=== PATIENT | female | born 1935 | race Caucasian/White ===

== ENCOUNTER 2016-12-12 13:39 | Inpatient (IN) | payer OTHER ==
[~2016-12-12] VITALS: Ht 170.2 cm; Wt 112.5 kg
[~2016-12-12 13:39] MED LIST: ADVAIR 100/501 DISK IH; BUMETANIDE1 MG PO; DIGITEK125 MC2 PO; FUROSEMIDE40 MG PO; GABAPENTIN100 MG PO; K-DUR20 MEQ PO; KETOCONAZOLE60 GM TP; LOPRESSOR25 MG PO; OLIVE PO; PREDNISONE20 MG PO; SPIRIVA1 INHALATI IH; SPIRONOLACTONE50 MG PO; TOPROL XL100 MG PO; VENTOLIN HFA18 GM IH; [UNRECOGNIZED DRUG - OTHER] PO
[2016-12-12 14:46] LABS: EOSINOPHIL (%) 0 % (0-5); HEMATOCRIT 35.2 % (36.0-46.0); IMMATURE GRANULOCYTE (%) 0.4 % (0.0-0.7); INSTRUMENT ABS NEUTROPHIL CT 6.3 K/uL; LYMPHOCYTE COUNT 0.9 K/uL (1.0-2.8); MCH 30.4 PG (29.0-34.0); MCV 92.4 FL (83-99); MEAN PLAT.VOLUME 9.8 uM^3 (9.5-12.4); MONOCYTE (%) 11.9 % (3-12); NEUTROPHIL (%) 76.8 % (45-76); NEUTROPHIL COUNT 6.3 K/uL (1.8-6.4); PLATELET COUNT 189 K/uL (156-360); RBC DIS.WIDTH-SD 56.9 % (39-53); RED BLOOD COUNT 3.81 M/uL (3.80-5.20); WHITE BLOOD COUNT 8.2 K/uL (4.1-10.2)
[2016-12-12 14:51] LABS: PROTHROMBIN TIME 22.2 SEC (10.2-12.9)
[2016-12-12 14:54] LABS: PTT 28.6 SEC (25-37)
[2016-12-12 14:55] LABS: CHLORIDE 98 mEq/L (99-109); SODIUM 136 mEq/L (136-147)
[2016-12-12 14:57] LABS: GLUCOSE 98 mg/dL (70-99)
[2016-12-12 14:58] LABS: ANION GAP 22 MEQ/L (2-14)
[2016-12-12 14:59] LABS: TOTAL BILIRUBIN 5.7 mg/dL (0.0-1.0)
[2016-12-12 15:00] LABS: ALKALINE PHOSPHATASE 104 IU/L (3-129)
[2016-12-12 15:01] LABS: GFR ESTIMATE (CALCULATED) 15 mL/min/; POTASSIUM 6.3 mEq/L (3.7-5.4)
[2016-12-12 15:02] LABS: UREA NITROGEN (BUN) 93 mg/dL (9-23)
[2016-12-12 15:04] LABS: CREATINE KINASE 303 IU/L (1-294); TOTAL CK 303 IU/L (1-294)
[2016-12-12 15:09] LABS: CK-MB 18.9 ng/mL (0.0-4.9)
[2016-12-12 15:10] LABS: TROP-I INTERPRETATION NEGATIVE; TROPONIN-I 0.06 ng/mL (0.0-0.30)
[2016-12-12 16:20] LABS: POINT-OF-CARE METER ID UU13113747
[2016-12-12] MEDS ORDERED: METOPROLOL SUC100 MG PO (16:32)
[2016-12-12] MEDS ORDERED: GABAPENTIN100 MG PO (16:33)
[2016-12-12] MEDS ORDERED: BUMEX1 MG PO (16:34)
[2016-12-12] MEDS ORDERED: ALDACTONE25 MG PO (16:34)
[2016-12-12] MEDS ORDERED: KLOR-CON SPRIN10 MEQ PO (16:34)
[2016-12-12] MEDS ORDERED: LO-DOSE ASPIRIN81 M1 PO (16:35)
[2016-12-12 16:55] LABS: POINT-OF-CARE METER ID UU13113747
[2016-12-12 20:03] LABS: ADD MIUA? YES; BILIRUBIN NEGATIVE; BLOOD MODERATE; COLOR AMBER ((YELLOW)); GLUCOSE (STRIP) NEGATIVE; KETONES NEGATIVE; LEUKOCYTES NEGATIVE; NITRITE NEGATIVE; PROTEIN (STRIP) 100; SPECIFIC GRAVITY 1.017 (1.000-1.030)
[2016-12-12 20:12] LABS: BACTERIA 2+ /HPF; EPITHELIAL CELLS RARE /HPF; HYALINE CASTS 30-40 /LPF; MUCUS TRACE /LPF; RED BLOOD CELLS 15-20 /HPF (0-5)
[2016-12-12 20:20] VITALS: BP 108/69
[2016-12-12 21:10] LABS: POINT-OF-CARE METER ID UU13113698
[2016-12-12 22:08] LABS: CHLORIDE 102 mEq/L (99-109); POTASSIUM 5.7 mEq/L (3.7-5.4); SODIUM 136 mEq/L (136-147)
[2016-12-12 22:09] LABS: GLUCOSE 98 mg/dL (70-99)
[2016-12-12 22:11] LABS: ANION GAP 18 MEQ/L (2-14)
[2016-12-12 22:13] LABS: GFR ESTIMATE (CALCULATED) 16 mL/min/
[2016-12-12 22:14] LABS: UREA NITROGEN (BUN) 91 mg/dL (9-23)
[2016-12-12 22:19] LABS: TROP-I INTERPRETATION NEGATIVE; TROPONIN-I 0.05 ng/mL (0.0-0.30)
[2016-12-13] VITALS (7 sets, daily range): BP systolic 104–118; BP diastolic 49–72
[2016-12-13 06:13] LABS: TROP-I INTERPRETATION NEGATIVE
[2016-12-13 08:03] LABS: POINT-OF-CARE METER ID UU14174216
[2016-12-13 08:50] LABS: HEMATOCRIT 32.7 % (36.0-46.0); MCH 30.5 PG (29.0-34.0); MCHC 32.4 G/DL (30.0-36.0); MEAN PLAT.VOLUME 10.3 uM^3 (9.5-12.4); NRBC (%) 0.3 /100 WBC (0-0); PLATELET COUNT 180 K/uL (156-360); RBC DIS.WIDTH-CV 17.1 % (11.8-14.6); RBC DIS.WIDTH-SD 57.7 % (39-53); RED BLOOD COUNT 3.48 M/uL (3.80-5.20); WHITE BLOOD COUNT 7.4 K/uL (4.1-10.2)
[2016-12-13 09:23] LABS: ALKALINE PHOSPHATASE 86 IU/L (3-129); ANION GAP 20 MEQ/L (2-14); CHLORIDE 101 MEQ/L (99-109); GFR ESTIMATE (CALCULATED) 15 mL/min/; GLUCOSE 95 mg/dL (70-99); POTASSIUM 5.3 MEQ/L (3.7-5.4); SAMPLE HEMOLYSIS CHECK 0; SAMPLE ICTERIC CHECK 1; SAMPLE LIPEMIA CHECK 0; SODIUM 137 MEQ/L (136-147); TOTAL BILIRUBIN 4.3 MG/DL (0.0-1.0); UREA NITROGEN (BUN) 96 mg/dL (9-23)
[2016-12-13 11:24] LABS: POINT-OF-CARE METER ID UU14174216
[2016-12-13 14:38] LABS: TROP-I INTERPRETATION POSITIVE; TROPONIN-I 0.89 ng/mL (0.0-0.30)
[2016-12-13 18:43] LABS: ANION GAP 17 MEQ/L (2-14); CHLORIDE 102 MEQ/L (99-109); CREATINE KINASE 109 IU/L (1-294); GFR ESTIMATE (CALCULATED) 15 mL/min/; GLUCOSE 129 mg/dL (70-99); POTASSIUM 4.9 MEQ/L (3.7-5.4); SAMPLE HEMOLYSIS CHECK 0; SAMPLE ICTERIC CHECK 0; SAMPLE LIPEMIA CHECK 0; SODIUM 136 MEQ/L (136-147); TROP-I INTERPRETATION POSITIVE; UREA NITROGEN (BUN) 94 mg/dL (9-23)
[2016-12-14 04:04] VITALS: BP 110/68
[2016-12-14 05:58] LABS: EOSINOPHIL (%) 0.8 % (0-5); EOSINOPHIL COUNT 0.1 K/uL (0-0.3); HEMATOCRIT 30.9 % (36.0-46.0); IMMATURE GRANULOCYTE (%) 0.8 % (0.0-0.7); IMMATURE GRANULOCYTE COUNT 0.1 K/uL; MCH 32.1 PG (29.0-34.0); MCHC 33.7 G/DL (30.0-36.0); MCV 95.4 FL (83-99); MEAN PLAT.VOLUME 9.8 uM^3 (9.5-12.4); MONOCYTE (%) 19.2 % (3-12); MONOCYTE COUNT 1.2 K/uL (0-0.8); NEUTROPHIL (%) 62.7 % (45-76); NRBC (%) 0.3 /100 WBC (0-0); PLATELET COUNT 165 K/uL (156-360); RBC DIS.WIDTH-CV 17.3 % (11.8-14.6); RBC DIS.WIDTH-SD 59.4 % (39-53); RED BLOOD COUNT 3.24 M/uL (3.80-5.20); WHITE BLOOD COUNT 6.3 K/uL (4.1-10.2)
[2016-12-14 06:44] LABS: ANION GAP 10 MEQ/L (2-14); CHLORIDE 100 MEQ/L (99-109); GFR ESTIMATE (CALCULATED) 14 mL/min/; GLUCOSE 132 mg/dL (70-99); POTASSIUM 4.5 MEQ/L (3.7-5.4); SAMPLE HEMOLYSIS CHECK 0; SAMPLE ICTERIC CHECK 0; SAMPLE LIPEMIA CHECK 0; SODIUM 133 MEQ/L (136-147); UREA NITROGEN (BUN) 94 mg/dL (9-23)
[2016-12-14 07:55] VITALS: BP 125/58
[2016-12-14 11:50] VITALS: BP 108/58
[2016-12-14 15:45] VITALS: BP 109/50
[2016-12-14 19:40] VITALS: BP 122/56
[2016-12-15] VITALS (7 sets, daily range): BP systolic 97–162; BP diastolic 52–74
[2016-12-16 05:10] LABS: EOSINOPHIL (%) 2.6 % (0-5); EOSINOPHIL COUNT 0.2 K/uL (0-0.3); HEMATOCRIT 31.5 % (36.0-46.0); IMMATURE GRANULOCYTE (%) 1.2 % (0.0-0.7); IMMATURE GRANULOCYTE COUNT 0.1 K/uL; INSTRUMENT ABS NEUTROPHIL CT 3.6 K/uL; LYMPHOCYTE COUNT 0.8 K/uL (1.0-2.8); MCH 32.3 PG (29.0-34.0); MCHC 33.7 G/DL (30.0-36.0); MEAN PLAT.VOLUME 9.9 uM^3 (9.5-12.4); MONOCYTE (%) 18.9 % (3-12); MONOCYTE COUNT 1.1 K/uL (0-0.8); NEUTROPHIL (%) 62.6 % (45-76); NEUTROPHIL COUNT 3.6 K/uL (1.8-6.4); PLATELET COUNT 151 K/uL (156-360); RBC DIS.WIDTH-CV 17.8 % (11.8-14.6); RBC DIS.WIDTH-SD 59.4 % (39-53); RED BLOOD COUNT 3.28 M/uL (3.80-5.20); WHITE BLOOD COUNT 5.8 K/uL (4.1-10.2)
[2016-12-16 05:32] VITALS: BP 107/57
[2016-12-16 06:00] LABS: ANION GAP 10 MEQ/L (2-14); CHLORIDE 107 MEQ/L (99-109); GFR ESTIMATE (CALCULATED) 29 mL/min/; GLUCOSE 119 mg/dL (70-99); POTASSIUM 4.1 MEQ/L (3.7-5.4); SAMPLE HEMOLYSIS CHECK 0; SAMPLE ICTERIC CHECK 0; SAMPLE LIPEMIA CHECK 0; SODIUM 139 MEQ/L (136-147); UREA NITROGEN (BUN) 80 mg/dL (9-23)
[2016-12-16 07:45] VITALS: BP 122/71
[2016-12-16 11:45] VITALS: BP 112/53
[2016-12-16 12:46] LABS: INTER. NORMALIZED RATIO 1.4
[2016-12-16 13:30] LABS: ALKALINE PHOSPHATASE 82 IU/L (3-129); DIRECT BILIRUBIN 0.6 mg/dL (0.0-0.3)
[2016-12-16 13:39] LABS: TOTAL BILIRUBIN 1.4 MG/DL (0.0-1.0)
[2016-12-16 16:18] VITALS: BP 122/57
[2016-12-16 19:50] VITALS: BP 130/60
[2016-12-16 23:05] VITALS: BP 121/57
[2016-12-17 04:15] VITALS: BP 118/58
[2016-12-17 04:16] LABS: EOSINOPHIL (%) 3.2 % (0-5); EOSINOPHIL COUNT 0.2 K/uL (0-0.3); HEMATOCRIT 33.2 % (36.0-46.0); IMMATURE GRANULOCYTE (%) 1.7 % (0.0-0.7); IMMATURE GRANULOCYTE COUNT 0.1 K/uL; INSTRUMENT ABS NEUTROPHIL CT 4.1 K/uL; LYMPHOCYTE COUNT 0.9 K/uL (1.0-2.8); MCH 30.7 PG (29.0-34.0); MCHC 32.2 G/DL (30.0-36.0); MCV 95.4 FL (83-99); MEAN PLAT.VOLUME 9.3 uM^3 (9.5-12.4); MONOCYTE (%) 17.9 % (3-12); MONOCYTE COUNT 1.2 K/uL (0-0.8); NEUTROPHIL (%) 63.2 % (45-76); NEUTROPHIL COUNT 4.1 K/uL (1.8-6.4); PLATELET COUNT 154 K/uL (156-360); RBC DIS.WIDTH-CV 17.7 % (11.8-14.6); RBC DIS.WIDTH-SD 59.3 % (39-53); RED BLOOD COUNT 3.48 M/uL (3.80-5.20); WHITE BLOOD COUNT 6.5 K/uL (4.1-10.2)
[2016-12-17 04:24] LABS: CHLORIDE 108 mEq/L (99-109); SODIUM 137 mEq/L (136-147)
[2016-12-17 04:26] LABS: GLUCOSE 114 mg/dL (70-99)
[2016-12-17 04:27] LABS: ANION GAP 10 MEQ/L (2-14)
[2016-12-17 04:28] LABS: TOTAL BILIRUBIN 1.3 mg/dL (0.0-1.0)
[2016-12-17 04:29] LABS: ALKALINE PHOSPHATASE 95 IU/L (3-129)
[2016-12-17 04:30] LABS: GFR ESTIMATE (CALCULATED) 33 mL/min/
[2016-12-17 04:31] LABS: UREA NITROGEN (BUN) 67 mg/dL (9-23)
[2016-12-17 07:38] VITALS: BP 144/63
[2016-12-17 11:00] VITALS: BP 114/58
[2016-12-17 15:32] VITALS: BP 119/60
[2016-12-17] MEDS ORDERED: ZINC OXIDE56.7 GM TP (15:40)
[2016-12-17] MEDS ORDERED: Zeasorb Antifungal T TP (15:40)
[2016-12-17] MEDS ORDERED: FAMOTIDINE20 MG PO (15:40)
== END 2016-12-17 19:58 | DRG 682 ==
LOC: EME 13:39 → 4EAST 16:00 → EDOF 16:00 → ENRESERV 17:31 → 4EAST 20:10 → ENPENDDIS 12-17 → 4EAST 12-17 19:58
PROVIDERS: Emergency Medicine; Internal Medicine; Internal Medicine Nephrology
DX: N17.0 Acute kidney failure with tubular necrosis (principal); G93.40 Encephalopathy, unspecified; L89.303 Pressure ulcer of unspecified buttock, stage 3; L03.116 Cellulitis of left lower limb; L03.115 Cellulitis of right lower limb; I13.0 Hypertensive heart and chronic kidney disease with heart failure and stage 1 through stage 4 chronic kidney disease, or unspecified chronic kidney disease; E87.2 Acidosis; E87.5 Hyperkalemia; I27.2 Other secondary pulmonary hypertension; I50.9 Heart failure, unspecified; I27.81 Cor pulmonale (chronic); I87.2 Venous insufficiency (chronic) (peripheral); T68.XXXA Hypothermia, initial encounter; J44.9 Chronic obstructive pulmonary disease, unspecified; I73.9 Peripheral vascular disease, unspecified; I48.0 Paroxysmal atrial fibrillation; D64.9 Anemia, unspecified; E11.22 Type 2 diabetes mellitus with diabetic chronic kidney disease; L89.309 Pressure ulcer of unspecified buttock, unspecified stage; L97.521 Non-pressure chronic ulcer of other part of left foot limited to breakdown of skin; R09.02 Hypoxemia; L97.811 Non-pressure chronic ulcer of other part of right lower leg limited to breakdown of skin; I48.2 Chronic atrial fibrillation; K80.20 Calculus of gallbladder without cholecystitis without obstruction; E78.5 Hyperlipidemia, unspecified; L97.511 Non-pressure chronic ulcer of other part of right foot limited to breakdown of skin; E87.6 Hypokalemia; N18.3 Chronic kidney disease, stage 3 (moderate); I08.1 Rheumatic disorders of both mitral and tricuspid valves; K74.60 Unspecified cirrhosis of liver; W19.XXXA Unspecified fall, initial encounter; Y92.009 Unspecified place in unspecified non-institutional (private) residence as the place of occurrence of the external cause; D63.1 Anemia in chronic kidney disease; R21 Rash and other nonspecific skin eruption; G62.9 Polyneuropathy, unspecified; E86.0 Dehydration; Z68.36 Body mass index [BMI] 36.0-36.9, adult; Z95.0 Presence of cardiac pacemaker; Z87.891 Personal history of nicotine dependence; Z82.49 Family history of ischemic heart disease and other diseases of the circulatory system
CPT/HCPCS: 70450; 71010; 76770; 80048; 80048 91; 80053; 80069; 80076; 81003; 82140; 82550; 82550 91; 82553; 82948; 83605; 84484; 85025; 85027; 85610; 85730; 87040; 93005; 94640; 94799; 97530 GO; 97530 GP; 99202; 99281; 99285; A6260; J0696; J1644; J7030; J7050

== ENCOUNTER 2017-03-20 00:04 | Inpatient (IN) | payer OTHER ==
[2017-03-20] VITALS (18 sets, daily range): BP systolic 41–125; BP diastolic 21–81
[~2017-03-20] VITALS: Ht 165.1 cm; Wt 106.3 kg
[~2017-03-20 00:04] MED LIST changes: +ALDACTONE25 MG PO; +BUMEX1 MG PO; +FAMOTIDINE20 MG PO; +KLOR-CON SPRIN10 MEQ PO; +LO-DOSE ASPIRIN81 M1 PO; +METOPROLOL SUC100 MG PO; +ZINC OXIDE56.7 GM TP; +Zeasorb Antifungal T TP
[2017-03-20 00:35] LABS: EOSINOPHIL (%) 0.2 % (0-5); HEMATOCRIT 32.4 % (36.0-46.0); INSTRUMENT ABS NEUTROPHIL CT 3.1 K/uL; LYMPHOCYTE COUNT 0.4 K/uL (1.0-2.8); MCH 30.5 PG (29.0-34.0); MCHC 32.4 G/DL (30.0-36.0); MCV 94.2 FL (83-99); MEAN PLAT.VOLUME 9.6 uM^3 (9.5-12.4); MONOCYTE (%) 13.8 % (3-12); MONOCYTE COUNT 0.6 K/uL (0-0.8); NEUTROPHIL (%) 74.4 % (45-76); NEUTROPHIL COUNT 3.1 K/uL (1.8-6.4); RBC DIS.WIDTH-CV 17.4 % (11.8-14.6); RBC DIS.WIDTH-SD 58.5 % (39-53); RED BLOOD COUNT 3.44 M/uL (3.80-5.20); WHITE BLOOD COUNT 4.1 K/uL (4.1-10.2)
[2017-03-20 00:37] LABS: INTER. NORMALIZED RATIO 1.3; PROTHROMBIN TIME 14.5 SEC (10.2-12.9)
[2017-03-20 00:40] LABS: PTT 30.6 SEC (25-37)
[2017-03-20 00:41] LABS: PLATELET COUNT 229 K/uL (156-360)
[2017-03-20 00:46] LABS: CHLORIDE 94 mEq/L (99-109); POTASSIUM 5.1 mEq/L (3.7-5.4); SODIUM 137 mEq/L (136-147)
[2017-03-20 00:49] LABS: GLUCOSE 108 mg/dL (70-99)
[2017-03-20 00:50] LABS: ANION GAP 16 MEQ/L (2-14); TOTAL BILIRUBIN 2.2 mg/dL (0.0-1.0)
[2017-03-20 00:52] LABS: ALKALINE PHOSPHATASE 80 IU/L (3-129); GFR ESTIMATE (CALCULATED) 9 mL/min/
[2017-03-20 00:53] LABS: UREA NITROGEN (BUN) 59 mg/dL (9-23)
[2017-03-20 00:54] LABS: DIRECT BILIRUBIN 1.1 mg/dL (0.0-0.3)
[2017-03-20 00:56] LABS: LIPASE 26 U/L (1.0-51.0)
[2017-03-20 00:57] LABS: TROP-I INTERPRETATION NEGATIVE; TROPONIN-I 0.04 ng/mL (0.0-0.30)
[2017-03-20 01:20] LABS: ADD MIUA? YES; BILIRUBIN NEGATIVE; BLOOD LARGE; COLOR AMBER ((YELLOW)); GLUCOSE (STRIP) NEGATIVE; KETONES NEGATIVE; LEUKOCYTES MODERATE; NITRITE NEGATIVE; PROTEIN (STRIP) 30; SPECIFIC GRAVITY 1.015 (1.000-1.030)
[2017-03-20 01:25] LABS: BASE EXCESS 2.4 mEq/L (-3 to +3); BICARBONATE 27.8 mEq/L (22-26); CARBOXY HGB 2.4 % (0-5); COMMENTS - BLOOD GASES A+C+; DEVICE NC; O2 FLOW 2 L/MIN; PCO2 46 mm Hg (35-45); PO2 102 mm Hg (80-100); SITE RR; TOTAL RESP RATE 22 resp/min; pH 7.39 (7.35-7.45)
[2017-03-20 01:55] LABS: INTERNAL CONTROL VALID? YES
[2017-03-20 02:04] LABS: CRYSTALS NONE SEEN; EPITHELIAL CELLS 3+ /HPF; RED BLOOD CELLS TNTC /HPF (0-5); WHITE BLOOD CELLS TNTC /HPF (0-5)
[2017-03-20 02:06] LABS: BACTERIA 1+ /HPF; CASTS PRESENT /LPF; MUCUS RARE /LPF; UCUL ADDED? YES
[2017-03-20 02:31] LABS: C DIFF TOXIN NEGATIVE (NEGATIVE)
[2017-03-20 02:37] LABS: PROBE CHECK PASS; SPECIMEN PROCESSING CONTROL PASS
[2017-03-20 07:38] LABS: BASE EXCESS -2.3 mEq/L (-3 to +3); BICARBONATE 24.9 mEq/L (22-26); CARBOXY HGB 2.2 % (0-5); COMMENTS - BLOOD GASES +C; DEVICE PB840; FI02 100 %; METHEMOGLOBIN 1.1 % (0-1.5); PCO2 53 mm Hg (35-45); PO2 395 mm Hg (80-100); SITE LR +A; pH 7.28 (7.35-7.45)
[2017-03-20 07:39] LABS: MECHANICAL RATE 16 resp/min; MODE ACVC+; PEEP 10 CM/H20; TIDAL VOLUME 450 ML; TOTAL RESP RATE 16 resp/min
[2017-03-20] MEDS ORDERED: FAMOTIDINE20 MG PO (08:34)
[2017-03-20] MEDS ORDERED: HEPARIN SO5000 UNIT4 SC (08:35)
[2017-03-20] MEDS ORDERED: LEXAPRO20 MG PO (08:35)
[2017-03-20] MEDS ORDERED: VITAMELTS FAST15 MG PO (08:37)
[2017-03-20] MEDS ORDERED: LASIX80 MG PO (08:38)
[2017-03-20] MEDS ORDERED: METOPROLOL TART25 MG PO (08:38)
[2017-03-20] MEDS ORDERED: LASIX40 MG PO (08:39)
[2017-03-20] MEDS ORDERED: DUONEB 2.5-0.5 M3 ML AEROSOL (08:40)
[2017-03-20] MEDS ORDERED: ZOFRAN4 MG PO (08:42)
[2017-03-20] MEDS ORDERED: DULCOLAX10 MG PR (08:46)
[2017-03-20] MEDS ORDERED: MILK OF MAGN PO (08:46)
[2017-03-20 09:07] LABS: POINT-OF-CARE METER ID UU13113803
[2017-03-20 09:51] LABS: EOSINOPHIL (%) 0.2 % (0-5); HEMATOCRIT 33.2 % (36.0-46.0); IMMATURE GRANULOCYTE (%) 0.6 % (0.0-0.7); INSTRUMENT ABS NEUTROPHIL CT 4.4 K/uL; LYMPHOCYTE COUNT 0.3 K/uL (1.0-2.8); MCH 30.1 PG (29.0-34.0); MCHC 31.6 G/DL (30.0-36.0); MCV 95.1 FL (83-99); MEAN PLAT.VOLUME 9.6 uM^3 (9.5-12.4); MONOCYTE (%) 11.3 % (3-12); MONOCYTE COUNT 0.6 K/uL (0-0.8); NEUTROPHIL (%) 81.9 % (45-76); NEUTROPHIL COUNT 4.4 K/uL (1.8-6.4); PLATELET COUNT 245 K/uL (156-360); RBC DIS.WIDTH-CV 17.3 % (11.8-14.6); RBC DIS.WIDTH-SD 59.3 % (39-53); RED BLOOD COUNT 3.49 M/uL (3.80-5.20); WHITE BLOOD COUNT 5.3 K/uL (4.1-10.2)
[2017-03-20 09:55] LABS: CARBON DIOXIDE (BICARBONATE) 30.2 MEQ/L (20-31)
[2017-03-20 09:56] LABS: METH RESISTANT S AUREUS PCR NEGATIVE (NEGATIVE)
[2017-03-20 10:03] LABS: ANION GAP 13 MEQ/L (2-14); CHLORIDE 98 MEQ/L (99-109); MAGNESIUM 2.3 mg/dl (1.3-2.7); POTASSIUM 4.4 MEQ/L (3.7-5.4); SAMPLE HEMOLYSIS CHECK 0; SAMPLE ICTERIC CHECK 0; SAMPLE LIPEMIA CHECK 0; SODIUM 137 MEQ/L (136-147)
[2017-03-20 10:08] LABS: ALKALINE PHOSPHATASE 70 IU/L (3-129); GFR ESTIMATE (CALCULATED) 10 mL/min/; GLUCOSE 138 mg/dL (70-99); UREA NITROGEN (BUN) 59 mg/dL (9-23)
[2017-03-20 10:10] LABS: PROBE CHECK PASS; SPECIMEN PROCESSING CONTROL PASS
[2017-03-20 12:42] LABS: CARBON DIOXIDE (BICARBONATE) 25.7 MEQ/L (20-31)
[2017-03-20 14:30] LABS: BASE EXCESS 2.6 mEq/L (-3 to +3); BICARBONATE 27.9 mEq/L (22-26); CARBOXY HGB 1.7 % (0-5); PCO2 45 mm Hg (35-45)
[2017-03-20 14:31] LABS: DEVICE VENT; FI02 40 %; MECHANICAL RATE 22 resp/min; MODE AC; PEEP 8 CM/H20; SITE CENTRAL LINE; TIDAL VOLUME 450 ML
[2017-03-20 14:32] LABS: PO2 < 32 mm Hg (80-100)
[2017-03-21] VITALS (30 sets, daily range): BP systolic 0–117; BP diastolic 0–83
[2017-03-21 06:16] LABS: EOSINOPHIL (%) 0.1 % (0-5); HEMATOCRIT 29.3 % (36.0-46.0); IMMATURE GRANULOCYTE (%) 0.4 % (0.0-0.7); INSTRUMENT ABS NEUTROPHIL CT 8.1 K/uL; LYMPHOCYTE COUNT 1.2 K/uL (1.0-2.8); MCH 29.9 PG (29.0-34.0); MCHC 33.1 G/DL (30.0-36.0); MEAN PLAT.VOLUME 9.6 uM^3 (9.5-12.4); MONOCYTE (%) 12.5 % (3-12); MONOCYTE COUNT 1.3 K/uL (0-0.8); NEUTROPHIL (%) 75.4 % (45-76); NEUTROPHIL COUNT 8.1 K/uL (1.8-6.4); PLATELET COUNT 265 K/uL (156-360); RBC DIS.WIDTH-CV 17.2 % (11.8-14.6); RBC DIS.WIDTH-SD 56.1 % (39-53); RED BLOOD COUNT 3.24 M/uL (3.80-5.20); WHITE BLOOD COUNT 10.7 K/uL (4.1-10.2)
[2017-03-21 06:18] LABS: MCV 90.4 FL (83-99)
[2017-03-21 06:32] LABS: ANION GAP 16 MEQ/L (2-14); CHLORIDE 97 MEQ/L (99-109); GFR ESTIMATE (CALCULATED) 10 mL/min/; MAGNESIUM 2.3 mg/dl (1.3-2.7); SAMPLE HEMOLYSIS CHECK 0; SAMPLE ICTERIC CHECK 0; SAMPLE LIPEMIA CHECK 0; SODIUM 138 MEQ/L (136-147); UREA NITROGEN (BUN) 60 mg/dL (9-23)
[2017-03-21 06:36] LABS: GLUCOSE 98 mg/dL (70-99)
[2017-03-21 06:37] LABS: VANCOMYCIN, TROUGH 9.2 MCG/ML (10-20)
[2017-03-22] VITALS (18 sets, daily range): BP systolic 73–114; BP diastolic 29–88
[2017-03-22 11:21] LABS: BASE EXCESS 1.8 mEq/L (-3 to +3); BICARBONATE 23.9 mEq/L (22-26); METHEMOGLOBIN 1.4 % (0-1.5)
[2017-03-22 11:22] LABS: COMMENTS - BLOOD GASES A+C+; DEVICE VENT; FI02 30 %; MECHANICAL RATE 22 resp/min; MODE AC/VC+; PCO2 28 mm Hg (35-45); PEEP 7 CM/H20; PO2 96 mm Hg (80-100); SITE RR; TIDAL VOLUME 450 ML; TOTAL RESP RATE 22 resp/min; pH 7.54 (7.35-7.45)
[2017-03-22 11:25] LABS: ANION GAP 17 MEQ/L (2-14); CHLORIDE 100 MEQ/L (99-109); GFR ESTIMATE (CALCULATED) 9 mL/min/; GLUCOSE 98 mg/dL (70-99); POTASSIUM 3.8 MEQ/L (3.7-5.4); SAMPLE HEMOLYSIS CHECK 0; SAMPLE ICTERIC CHECK 0; SAMPLE LIPEMIA CHECK 0; SODIUM 140 MEQ/L (136-147); UREA NITROGEN (BUN) 64 mg/dL (9-23)
[2017-03-23] VITALS (20 sets, daily range): BP systolic 77–123; BP diastolic 51–89
[2017-03-23 06:53] LABS: ALKALINE PHOSPHATASE 57 IU/L (3-129); ANION GAP 15 MEQ/L (2-14); CHLORIDE 100 MEQ/L (99-109); GFR ESTIMATE (CALCULATED) 9 mL/min/; GLUCOSE 108 mg/dL (70-99); MAGNESIUM 2.5 mg/dl (1.3-2.7); POTASSIUM 4.1 MEQ/L (3.7-5.4); SAMPLE HEMOLYSIS CHECK 1; SAMPLE ICTERIC CHECK 0; SAMPLE LIPEMIA CHECK 0; SODIUM 139 MEQ/L (136-147); UREA NITROGEN (BUN) 66 mg/dL (9-23)
[2017-03-23 07:02] LABS: TOTAL BILIRUBIN 2.7 MG/DL (0.0-1.0)
[2017-03-23 07:07] LABS: EOSINOPHIL COUNT 0.1 K/uL (0-0.3); HEMATOCRIT 28.5 % (36.0-46.0); IMMATURE GRANULOCYTE (%) 0.9 % (0.0-0.7); IMMATURE GRANULOCYTE COUNT 0.1 K/uL; INSTRUMENT ABS NEUTROPHIL CT 6.4 K/uL; LYMPHOCYTE COUNT 1.2 K/uL (1.0-2.8); MCH 30.6 PG (29.0-34.0); MCV 92.8 FL (83-99); MONOCYTE (%) 15.1 % (3-12); MONOCYTE COUNT 1.4 K/uL (0-0.8); NEUTROPHIL (%) 69.4 % (45-76); NEUTROPHIL COUNT 6.4 K/uL (1.8-6.4); NRBC (%) 0.2 /100 WBC (0-0); PLATELET COUNT 188 K/uL (156-360); RBC DIS.WIDTH-CV 17.8 % (11.8-14.6); RBC DIS.WIDTH-SD 58.3 % (39-53); RED BLOOD COUNT 3.07 M/uL (3.80-5.20); WHITE BLOOD COUNT 9.2 K/uL (4.1-10.2)
[2017-03-24] VITALS (24 sets, daily range): BP systolic 55–144; BP diastolic 37–98
[2017-03-24 06:48] LABS: BASOPHIL COUNT 0.1 K/uL (0-0.1); EOSINOPHIL (%) 0.8 % (0-5); EOSINOPHIL COUNT 0.1 K/uL (0-0.3); IMMATURE GRANULOCYTE (%) 1.4 % (0.0-0.7); IMMATURE GRANULOCYTE COUNT 0.2 K/uL; INSTRUMENT ABS NEUTROPHIL CT 8.8 K/uL; MCH 29.8 PG (29.0-34.0); MCHC 31.3 G/DL (30.0-36.0); MCV 95.2 FL (83-99); MEAN PLAT.VOLUME 9.6 uM^3 (9.5-12.4); MONOCYTE (%) 14.4 % (3-12); MONOCYTE COUNT 1.7 K/uL (0-0.8); NEUTROPHIL COUNT 8.8 K/uL (1.8-6.4); NRBC (%) 0.2 /100 WBC (0-0); PLATELET COUNT 207 K/uL (156-360); RBC DIS.WIDTH-SD 61.1 % (39-53); RED BLOOD COUNT 3.15 M/uL (3.80-5.20); WHITE BLOOD COUNT 11.8 K/uL (4.1-10.2)
[2017-03-24 07:08] LABS: ANION GAP 16 MEQ/L (2-14); CHLORIDE 103 MEQ/L (99-109); MAGNESIUM 2.4 mg/dl (1.3-2.7); SAMPLE HEMOLYSIS CHECK 0; SAMPLE ICTERIC CHECK 0; SAMPLE LIPEMIA CHECK 0; SODIUM 139 MEQ/L (136-147); TOTAL BILIRUBIN 2.3 MG/DL (0.0-1.0)
[2017-03-24 07:13] LABS: ALKALINE PHOSPHATASE 55 IU/L (3-129); GFR ESTIMATE (CALCULATED) 11 mL/min/; GLUCOSE 101 mg/dL (70-99); UREA NITROGEN (BUN) 61 mg/dL (9-23)
== END 2017-03-24 17:58 | DRG 870 ==
LOC: EME 00:04 → EDOF 06:17 → 4WEST 06:17 → ENRESERV 06:18 → CANRESERV 06:18 → ENRESERV 07:16 → 4WEST 08:14
PROVIDERS: Emergency Medicine; Internal Medicine; Internal Medicine Nephrology; Specialist
PROC: 0BH17EZ Insertion of Endotracheal Airway into Trachea, Via Natural or Artificial Opening (ICD-10-PCS; principal; 2017-03-20)
PROC: 5A1955Z Respiratory Ventilation, Greater than 96 Consecutive Hours (ICD-10-PCS; principal; 2017-03-20)
PROC: 02HV33Z Insertion of Infusion Device into Superior Vena Cava, Percutaneous Approach (ICD-10-PCS; principal; 2017-03-20)
PROC: 06HY33Z Insertion of Infusion Device into Lower Vein, Percutaneous Approach (ICD-10-PCS; 2017-03-23)
PROC: 5A1D80Z Performance of Urinary Filtration, Prolonged Intermittent, 6-18 hours Per Day (ICD-10-PCS; 2017-03-23)
PROC: 02PYX3Z Removal of Infusion Device from Great Vessel, External Approach (ICD-10-PCS; 2017-03-24)
PROC: 02HV33Z Insertion of Infusion Device into Superior Vena Cava, Percutaneous Approach (ICD-10-PCS; 2017-03-24)
DX: A41.2 Sepsis due to unspecified staphylococcus (principal); R65.21 Severe sepsis with septic shock; N39.0 Urinary tract infection, site not specified; L08.9 Local infection of the skin and subcutaneous tissue, unspecified; N17.0 Acute kidney failure with tubular necrosis; J96.00 Acute respiratory failure, unspecified whether with hypoxia or hypercapnia; J44.1 Chronic obstructive pulmonary disease with (acute) exacerbation; J69.0 Pneumonitis due to inhalation of food and vomit; G92 Toxic encephalopathy; I13.0 Hypertensive heart and chronic kidney disease with heart failure and stage 1 through stage 4 chronic kidney disease, or unspecified chronic kidney disease; I50.813 Acute on chronic right heart failure; N18.3 Chronic kidney disease, stage 3 (moderate); R18.8 Other ascites; E11.22 Type 2 diabetes mellitus with diabetic chronic kidney disease; E11.51 Type 2 diabetes mellitus with diabetic peripheral angiopathy without gangrene; E87.2 Acidosis; E11.622 Type 2 diabetes mellitus with other skin ulcer; L89.322 Pressure ulcer of left buttock, stage 2; L89.319 Pressure ulcer of right buttock, unspecified stage; Z66 Do not resuscitate; L89.891 Pressure ulcer of other site, stage 1; E86.1 Hypovolemia; I48.2 Chronic atrial fibrillation; I27.81 Cor pulmonale (chronic); L97.811 Non-pressure chronic ulcer of other part of right lower leg limited to breakdown of skin; I05.2 Rheumatic mitral stenosis with insufficiency; I42.9 Cardiomyopathy, unspecified; I27.29 Other secondary pulmonary hypertension; I70.209 Unspecified atherosclerosis of native arteries of extremities, unspecified extremity; I87.2 Venous insufficiency (chronic) (peripheral); E78.5 Hyperlipidemia, unspecified; F03.90 Unspecified dementia, unspecified severity, without behavioral disturbance, psychotic disturbance, mood disturbance, and anxiety; D64.9 Anemia, unspecified; K76.1 Chronic passive congestion of liver; R19.7 Diarrhea, unspecified; Z95.0 Presence of cardiac pacemaker; Z87.891 Personal history of nicotine dependence
CPT/HCPCS: 36600; 70450; 71010; 71250; 74000; 74176; 80048; 80053; 80200; 80202; 81003; 82248; 82803; 82948; 83605; 83630; 83690; 83735; 83880; 84100; 84145 90; 84484; 85025; 85025 91; 85610; 85730; 86141; 87040; 87070; 87077; 87086; 87177; 87186; 87205; 87493; 87506; 87641; 87801; 93005; 93306; 94002; 94003; 94640; 94640 76; 94760; 99202; 99281; 99285; A6212; C1751; C1752; C1788; J0692; J1644; J1940; J2060; J2250; J2370; J2405; J2543; J2704; J3010; J3260; J3370; J7030; J7040; J7050; J7060; P9047; S0028